=== PATIENT | female | born 2005 | race Caucasian/White ===

== ENCOUNTER 2024-12-15 13:23 | Emergency (ER) | payer SELFPAY | END 2024-12-15 14:49 | disposition home or self-care (01) | LOC: CSHERS 13:23 | DX: S29.011A Strain of muscle and tendon of front wall of thorax, initial encounter (principal); F17.290 Nicotine dependence, other tobacco product, uncomplicated; X58.XXXA Exposure to other specified factors, initial encounter | CPT/HCPCS: 71045 ==